=== PATIENT | male | born 1955 | race Caucasian/White ===

== ENCOUNTER → 2023-07-20 06:33 | Day surgery (SDC) | payer MEDICARE, OTHER, SELFPAY | LOC: GI 06:33 | PROVIDERS: ATTENDING PHYSICIAN Internal Medicine | DX: K52.9 Noninfective gastroenteritis and colitis, unspecified (principal); Z80.0 Family history of malignant neoplasm of digestive organs; K63.89 Other specified diseases of intestine; R19.5 Other fecal abnormalities; K52.839 Microscopic colitis, unspecified; D12.3 Benign neoplasm of transverse colon; D12.4 Benign neoplasm of descending colon; D12.2 Benign neoplasm of ascending colon | CPT/HCPCS: 45385; 45380; 88305; 88313; 88342 ==

== ENCOUNTER 2023-07-24 06:11 | Day surgery (SDC) | payer MEDICARE, OTHER, SELFPAY ==
--- NOTE | 2023-06-19 10:18 | CM ---
Patient is scheduled for an elective R TKR on 07/24/23- he is a same day patient. Spoke with patient prior to surgery. Introduced role of Orthopedic Navigator. Patient reports that he lives with his partner in a two story home. There is one step to
enter and a flight of steps to the second floor. He currently functions independently. He has a cane and walking sticks. He has never had VN services. PCP is Janny Galdamez.
Discussed orthopedic program and post surgical plans. Patient will go directly to outpatient PT beginning on 07/25/23. He and will go to [facility].
Patient is in agreement with plan and states that his partner will be home with him.
Patient will complete online education.
Plan: Orthopedic Navigator will remain available to assist with the care of patient and will reassess discharge needs after surgery.
[2023-07-04 09:11] VITALS: BMI 26.5
[2023-07-04 10:41] LABS: Hematocrit 44.9 % (39.0-52.0); Hemoglobin 15.2 g/dL (13.0-18.0); Mean Corp Hgb Conc. 33.9 g/dL (33.0-37.0); Mean Corpuscular Hgb 32.8 pg (27.0-31.0); Mean Platelet Volume 9.8 fL (7.4-10.4); Platelet Count 245 10^3/uL (130-400); Red Blood Cell Count 4.63 10^6/uL (4.70-6.10); White Blood Cell Count 5.1 10^3/uL (4.8-10.8)
[2023-07-04 10:59] LABS: ALT (SGPT) 40 U/L (0-50); AST (SGOT) 41 U/L (17-59); Albumin 3.7 g/dl (3.5-5.0); Alkaline Phosphatase 86 U/L (38-126); Blood Urea Nitrogen 12 mg/dl (9-20); Calcium 8.8 mg/dl (8.4-10.2); Carbon Dioxide 28 mmol/L (22-30); Chloride 107 mmol/L (98-107); Estimated Creatinine Clearance 62 ml/min; Glucose 103 mg/dl (70-99); Potassium 4.1 mmol/L (3.5-5.1); Sodium 139 mmol/L (135-145); Total Protein 6.3 g/dl (6.3-8.2); eGFR > 60.00
[2023-07-04 11:38] LABS: Glycohemoglobin (HgbA1c) 5.6 % (4.0-5.6)
[2023-07-04 15:59] VITALS: BMI 26.5
[2023-07-24] VITALS (14 sets, daily range): BP systolic 120–161; BP diastolic 75–88; PULSE 68; O2SAT 99; BMI 26.5
[2023-07-24] MEDS: TYLENOL 650 MG PO (06:43)
[2023-07-24] MEDS: CELEBREX 200 MG PO (06:43)
[2023-07-24] MEDS: NORMOSOL-R 1000 IV ×2 (06:43→09:02)
--- NOTE | 2023-07-24 07:47 | W.DS.TRANS ---
DC Summary - Manager Budget
-
Discharge Instructions:
Sleep Apnea Risk Low
Discharge Diagnosis/Procedures R TKA Dr. Lombardi 07/24/23
Diet As tolerated
Activity With Walker
Driving Restrictions No driving
Bathing Restrictions OK to Shower
Other Services PT,VN
Instructions:
Stand-Alone Forms: SDS Total Hip and Knee D/C
Changes to Home Medications: Yes
Discharge Medications:
DC Medications w/original date entered in [facility]
Medical Marijuana 1 dose PO PRN PRN anxiety, pain 06/30/23
albuterol sulfate 90 mcg/actuation aerosol inhaler 1 puff inhalation PRN PRN shortness of breath 06/30/23
cyanocobalamin (vitamin B-12) 1 dose IM .MONTHLY 06/30/23
emtricitabine 200 mg-tenofovir disoproxil fumarate 300 mg tablet 1 tab PO DAILY 06/30/23
famotidine 40 mg tablet 40 mg PO QPM 06/30/23
testosterone enanthate 75 mg/0.5 mL subcutaneous auto-injector (Xyosted) 75 mg SC QWEEK 06/30/23
valacyclovir 1 gram tablet (Valtrex) 1,000 mg PO DAILY 06/30/23
cefadroxil 500 mg capsule 500 mg PO BID infection prevention #14 caps 07/04/23
dexamethasone 4 mg tablet 4 mg PO BID inflammation #6 tabs 07/04/23
gabapentin 300 mg capsule 300 mg PO HS sleep/pain #10 caps 07/04/23
mupirocin 2 % topical ointment 1 applic topical BID infection prevention #1 tube 07/04/23
oxycodone 5 mg tablet 5 - 10 mg PO Q6HPRN PRN 1 tab moderate-2 tabs severe pain #30 tabs 07/04/23
amlodipine 2.5 mg tablet 2.5 mg PO DAILY 07/17/23
acetaminophen 325 mg capsule (Tylenol) 650 mg PO QID #2 caps 07/24/23
aspirin 325 mg tablet 325 mg PO DAILY blood clot prevention #1 tab 07/24/23
budesonide 1 cap PO BID 07/24/23
docusate sodium 100 mg capsule (Colace) 100 mg PO BID stool softner #1 cap 07/24/23
magnesium hydroxide 400 mg/5 mL oral suspension (Milk of Magnesia) 30 ml PO HS PRN Constipation #1 mL 07/24/23
sennosides 8.6 mg tablet (Senokot) 17.2 mg PO BID laxative #2 tabs 07/24/23
Home Medication Changes
cefadroxil 500 mg capsule 500 mg PO BID infection prevention #14 caps 07/04/23
dexamethasone 4 mg tablet 4 mg PO BID inflammation #6 tabs 07/04/23
gabapentin 300 mg capsule 300 mg PO HS sleep/pain #10 caps 07/04/23
mupirocin 2 % topical ointment 1 applic topical BID infection prevention #1 tube 07/04/23
oxycodone 5 mg tablet 5 - 10 mg PO Q6HPRN PRN 1 tab moderate-2 tabs severe pain #30 tabs 07/04/23
Pending Results: No
--- NOTE | 2023-07-24 10:42 | CM ---
Patient had planned R TKR today. Met with patient at bedside to review discharge plans. Patient will be returning home today. He will begin outpatient PT tomorrow, 07/24. He will go to [facility]. Reviewed MD follow up in two weeks and patient has
already scheduled his appointment.
Patient states that his partner is bring his rolling walker.
PT was kept updated as to progress and discharge plans.
[2023-07-24] MEDS: ANCEF 5 IV (11:22)
[2023-07-24] MEDS: ROXICODONE 5 MG PO (12:21)
== END 2023-07-24 12:50 | disposition home or self-care (01) ==
LOC: SDS 06:11
PROVIDERS: ATTENDING PHYSICIAN Specialist; FAMILY PHYSICIAN Family Medicine
DX: M17.11 Unilateral primary osteoarthritis, right knee (principal); M45.9 Ankylosing spondylitis of unspecified sites in spine; M06.9 Rheumatoid arthritis, unspecified; J45.909 Unspecified asthma, uncomplicated; D53.9 Nutritional anemia, unspecified; D51.9 Vitamin B12 deficiency anemia, unspecified; D47.2 Monoclonal gammopathy; C62.90 Malignant neoplasm of unspecified testis, unspecified whether descended or undescended; B00.9 Herpesviral infection, unspecified
CPT/HCPCS: 27447; 36415; 73560; 80053; 83036; 85027; 87070; 93005; 97116; 97161; C1713; C1776